=== PATIENT | female | born 1990 | race Caucasian/White ===

== ENCOUNTER 2016-11-21 23:06 | Emergency (ER) | payer MEDICAID ==
[2016-11-22 00:42] LABS: Urine Bilirubin Negative (NEGATIVE); Urine Blood Negative /ul (NEGATIVE); Urine Ketone Negative (NEGATIVE); Urine Nitrite Negative (NEGATIVE); Urine Protein Negative (NEGATIVE); Urine Specific Gravity 1.025 SP.GR. (1.005-1.010); Urine Urobilinogen Normal (NORMAL)
[2016-11-22 00:46] LABS: Urine Appearance Clear; Urine Color Yellow
[2016-11-22 00:54] LABS: Urine Bacteria 1+; Urine RBC None Seen /hpf (0-5); Urine WBC 0-5 /hpf (0-5)
[2016-11-22 00:55] LABS: Urine Yeast Few - 1+
[2016-11-22] MEDS ORDERED: AZITHROMYCIN 250 MG TABLET PO ONE (00:56)
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
[2016-11-22] MEDS ORDERED: AZITHROMYCIN 250 MG TABLET ONE (01:04)
[2016-11-22] MEDS ORDERED: KETOROLAC TROMETHAMINE 60 MG/2 ML VIAL IM ONE ×2 (01:10)
[2016-11-22 01:57] VITALS: BP 124/82
== END 2016-11-22 01:43 | disposition home or self-care (01) ==
LOC: ER 23:06
DX: N89.8 Other specified noninflammatory disorders of vagina (principal); R51 Headache; F17.200 Nicotine dependence, unspecified, uncomplicated